=== PATIENT | female | born 1945 | race Caucasian/White ===

== ENCOUNTER 2021-05-13 21:19 | Emergency (ER) | payer MEDICARE, OTHER ==
--- NOTE | 2021-05-13 21:34 | ED Physician Documentation ---
PD HPI CHEST PAIN - Stated complaint Stated Complaint: CP/NAUSEA - History obtained from History obtained from: Patient - History of Present Illness Timing - onset: How many hours ago (1) Timing - onset during: Rest Timing - details: Abrupt onset Pain level max: 4 Pain level now: 0 Quality: Sharp Location: Other (across upper chest) Radiation: Back, Abdominal Improved by: Other (resolved spontaneously (no apparent ameliorating factors)) Worsened by: Other (no exacerbating factors) Associated symptoms: No: Shortness of air, Diaphoresis, Nausea, Vomiting, Feeling faint / dizzy, General Weakness, Palpitations, Cough Similar symptoms before: Has not had sx before Recently seen: Not recently seen - Additional information Additional information: 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 Episode lasted approximately 15 minutes and has spontaneously and completely resolved. It was associated with nausea but no vomiting, as well as eructation. She says she had a similar episode 1 or 2 weeks ago with similar features, also spontaneously resolved Review of Systems Constitutional: reports: Reviewed and negative Cardiac: reports: Chest pain / pressure. denies: Palpitations, Pedal edema Respiratory: reports: Reviewed and negative GI: reports: Abdominal Pain (epigastric (feels like this is pain that originates across upper chest, then radiates to epigastrium)), Nausea. denies: Vomiting : denies: Dysuria, Frequency PD PAST MEDICAL HISTORY - Past Medical History Past Medical History: No - Allergies Allergies/Adverse Reactions: Allergies Allergy/AdvReac Type Severity Reaction Status Date / Time No Known Drug Allergies Allergy Verified 05/13/21 21:34 PD ED PE NORMAL - Vitals Vital signs reviewed: Yes - General General: Alert and oriented X 3, No acute distress, Well developed/nourished - Neck Neck: Supple, no meningeal sign - Cardiac Cardiac: RRR, No murmur, No gallop, No rub - Respiratory Respiratory: No respiratory distress, Clear bilaterally - Abdomen Abdomen: Soft, Non tender, Non distended - Back Back: No CVA TTP - Derm Derm: Normal color, Warm and dry - Extremities Extremities: No edema Results - Vitals Vitals: Oxygen O2 Source Room air - EKG (time done) No standard instances Rate: Rate (enter#) (68) Rhythm: NSR [place]: Normal Intervals: Normal [place] QRS: Normal Ischemia: Normal ST segments Computer interpretation: Disagree with computer (no abberrancy noted) - Labs Labs: Laboratory Tests 05/13/21 05/13/21 05/13/21 22:00 22:00 22:00 WBC 8.6 RBC 4.49 Hgb 11.8 L Hct 36.9 L MCV 82.2 MCH 26.3 L MCHC 32.0 RDW 13.2 Plt Count 209 MPV 10.0 Neut # (Auto) 4.0 Lymph # (Auto) 3.[address] [place] [place] # (Auto) 0.7 Eos # (Auto) 0.3 Baso # (Auto) 0.0 Absolute Nucleated RBC 0.00 Nucleated RBC % 0.0 Sodium 136 Potassium 4.4 Chloride 101 Carbon Dioxide 24 Anion Gap 11.0 BUN 19 Creatinine 0.7 Estimated GFR (MDRD) 81 L Glucose 107 H Calcium 9.2 Total Bilirubin 0.6 AST 20 ALT 14 Alkaline Phosphatase 70 Troponin I High Sens 4.4 Total Protein 7.3 Albumin 4.1 Globulin 3.2 Albumin/Globulin Ratio 1.3 Lipase 33 - Rads (name of study) chest xray Radiology: Prelim report reviewed, See rad report PD MEDICAL DECISION MAKING - ED course Complexity details: reviewed results, re-evaluated patient, considered differential, d/w patient ED course: presents with pain across upper chest radiating to back and abdomen. She has an unremarkable exam, no concerning findings on EKG (some artifact but this does not preclude interpretation), reassuring CXR and blood tests including high sensitivity troponin. Further emergent testing not indicated at this time. Results reviewed with patient, lack of specific diagnosis was discussed, return precautions given. Departure - Departure Disposition: 01 Home, Self Care Clinical Impression: Chest pain Qualifiers: Chest pain type: unspecified Qualified Code(s): R07.9 - Chest pain, unspecified Condition: Good Instructions: ED Chest Pain Atypical Unkn Cause Comments: The tests performed tonight have reassuring/unremarkable results, including the chest xray and EKG as well as the blood tests including a cardiac enzyme test (high-sensitivity troponin). The cause of your symptoms is not apparent at this time. Further tests are at the discretion of your primary care provider, but please return if your symptoms worsen or if you develop new concerning signs/symptoms (such as fever or shortness of breath, for example). Discharge Date/Time: 05/13/21 23:52
[2021-05-13 22:04] LABS: BASOPHILS % (AUTO) 0.3 %; EOSINOPHILS # (AUTO) 0.3 10^3/uL (0.0-0.7); HCT - HEMATOCRIT 36.9 % (37.0-47.0); HGB - HEMOGLOBIN 11.8 g/dL (12.0-16.0); LYMPHOCYTES # (AUTO) 3.6 10^3/uL (1.5-3.5); LYMPHOCYTES % (AUTO) 41.7 %; MEAN CORPUSCULAR HEMOGLOBIN 26.3 pg (27.0-31.0); MEAN CORPUSCULAR VOLUME 82.2 fL (81.0-99.0); MONOCYTES # (AUTO) 0.7 10^3/uL (0.0-1.0); MONOCYTES % (AUTO) 8.1 %; NEUTROPHILS % (AUTO) 46.4 %; PLT - PLATELET COUNT 209 10^3/uL (130-450); RED BLOOD COUNT 4.49 10^6/uL (4.20-5.40); RED CELL DISTRIBUTION WIDTH 13.2 % (12.0-15.0); WHITE BLOOD COUNT 8.6 x10^3/uL (4.8-10.8)
[2021-05-13 22:24] LABS: ALBUMIN 4.1 g/dL (3.2-5.5); ALBUMIN/GLOBULIN RATIO 1.3 (1.0-2.2); BILIRUBIN,TOTAL 0.6 mg/dL (0.2-1.0); CALCIUM 9.2 mg/dL (8.5-10.3); CREATININE 0.7 mg/dL (0.4-1.0); POTASSIUM 4.4 mmol/L (3.5-5.0); TOTAL PROTEIN 7.3 g/dL (6.7-8.2)
--- NOTE | 2021-05-13 22:33 | XRAY Report ---
PROCEDURE: Chest 2 View X-Ray INDICATIONS: chest pain TECHNIQUE: 2 view(s) of the chest. COMPARISON: None. FINDINGS: Surgical changes and devices: None. Lungs and pleura: No pleural effusions or pneumothorax. Lungs are clear. Mediastinum: Mediastinal contours are normal. Heart size is normal. Bones and chest wall: No suspicious bony abnormalities. Soft tissues appear unremarkable. IMPRESSION: No acute cardiopulmonary pathology. Reviewed by: Nam Denis MD on 05/13/2021 10:32 PM [facility] Approved by: Nam Denis MD on 05/13/2021 10:32 PM [facility] Station ID: [id number]
[2021-05-13 23:52] VITALS: BP 161/83
== END 2021-05-13 23:52 | disposition home or self-care (01) ==
LOC: ED 21:19
DX: R07.9 Chest pain, unspecified (principal)
CPT/HCPCS: 36415; 80053; 83690; 84484; 85025; 93005; 99284

== ENCOUNTER 2022-03-06 14:44 | Emergency (ER) | payer OTHER, MEDICARE ==
[2022-03-06] MEDS ORDERED: oxyCODONE 5 MG TABLET PO STA (17:23)
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
--- NOTE | 2022-03-06 18:05 | CT Report ---
PROCEDURE: LUMBAR SPINE WO INDICATIONS: left hip pain TECHNIQUE: Noncontrast 3 mm thick sections acquired from the T12 level to the sacrum. Sagittal and coronal refo rmats were constructed. For radiation dose reduction, the following was used: automated exposure co ntrol, adjustment of mA and/or kV according to patient size. COMPARISON: None. FINDINGS: Image quality: Excellent. Bones: There is normal bony alignment. No acute vertebral body compression fractures. No suspiciou s lytic or blastic bony lesions. Central spinal caliber is of normal overall caliber. No pars defec ts. There is loss of intervertebral disc space height at L5-S1. There our multilevel broad-based disc bulges most pronounced at L4-L5 and L2-L3. There are small to moderate sized vertebral body osteophy lila. There is mild central canal narrowing at L2-L3. Soft tissues: No retroperitoneal masses or hematomas. Visualized aorta is normal in caliber. Low-de nsity renal cysts bilaterally. Low-density right ovarian cyst partially visualized. Diverticulosis. IMPRESSION: No lumbar spine compression fracture. Reviewed by: Mo Stapleton MD on 03/06/2022 6:04 PM PST Approved by: Mo Stapleton MD on 03/06/2022 6:04 PM PST Station ID: [id number]
--- NOTE | 2022-03-06 18:10 | CT Report ---
PROCEDURE: PELVIS WO INDICATIONS: left hip pain TECHNIQUE: Noncontrast 3 mm axial sections acquired through the bony pelvis, with coronal and sagittal reformatt ing. For radiation dose reduction, the following was used: automated exposure control, adjustment of mA and/or kV according to patient size. COMPARISON: Same day lumbar spine CT. FINDINGS: Image quality: Excellent. Bones: No acute fracture or dislocation. No aggressive appearing osseous lesion. There is moderate d egenerative change at the hip joints. Soft tissues: Bilateral low-density renal cysts. Right ovarian low-density cyst measuring 3.4 cm. Pu nctate calcification at the rectal remnant. No mass. Uterus is absent. No free fluid. A few colonic d iverticuli. Tiny fat-containing umbilical hernia. Ventral lower abdominal wall scar. Right buttocks h eterotopic calcification. No enlarged lymph nodes. Mild atherosclerotic plaque in the abdominal aorta . IMPRESSION: No acute osseous abnormality. Moderate bilateral hip DJD. Reviewed by: Mo Stapleton MD on 03/06/2022 6:09 PM PST Approved by: Mo Stapleton MD on 03/06/2022 6:09 PM PST Station ID: [id number]
[2022-03-06 18:59] VITALS: BP 154/78
== END 2022-03-06 19:13 | disposition home or self-care (01) ==
LOC: ED 14:44
DX: M25.552 Pain in left hip (principal)
CPT/HCPCS: 72131; 72192; 99282; 99284; A9270

== ENCOUNTER 2022-03-22 07:36 | Outpatient (CLI) | payer MEDICARE, OTHER ==
--- NOTE | 2022-03-22 17:11 | XRAY Report ---
PROCEDURE: Chest 2 View X-Ray INDICATIONS: COUGH TECHNIQUE: 2 views of the chest were acquired. COMPARISON: Chest x-ray 05/13/2021 FINDINGS: Surgical changes and devices: None. Lungs and pleura: No pleural effusions or pneumothorax. Lungs are clear. Mediastinum: Mediastinal contours are normal. Heart size is normal. Bones and chest wall: No suspicious bony abnormalities. Soft tissues appear unremarkable. IMPRESSION: No acute pulmonary process. Reviewed by: Aundrea Lang MD on 03/22/2022 5:10 PM [facility] Approved by: Aundrea Lang MD on 03/22/2022 5:10 PM [facility] Station ID: [id number]
== END 2022-03-22 23:59 | disposition home or self-care (01) ==
LOC: DI.N 07:36
PROVIDERS: ATTEND Family Medicine
DX: R05.9 Cough, unspecified (principal)

== ENCOUNTER 2022-10-15 19:24 | Emergency (ER) | payer MEDICARE, OTHER ==
[2022-10-15 19:40] VITALS: BP 171/78
--- NOTE | 2022-10-15 19:53 | ED Physician Documentation ---
PD HPI LOWER EXT INJURY - Stated complaint Stated Complaint: R LEG PX - Chief complaint Chief Complaint: Ext Problem - History obtained from History obtained from: Patient - Additional information Additional information: She has had about 6 days of burning pain and numbness in the right lateral thigh. No injury. She had sciatica before but she says this feels different as there is no associated back pain. She has specific worry about a DVT. No personal History of same, but her mom had history of blood clots. PD PAST MEDICAL HISTORY - Present Medications Home Medications: Ambulatory Orders Medication Instructions Recorded Confirmed Rosuvastatin Calcium [Crestor] 10/15/22 Sertraline [Zoloft] 10/15/22 amLODIPine [Norvasc] 10/15/22 metFORMIN [Glucophage] 10/15/22 - Allergies Allergies/Adverse Reactions: Allergies Allergy/AdvReac Type Severity Reaction Status Date / Time gluten Allergy Headache Verified 10/15/22 19:38 - Social History Does the pt smoke?: No Smoking Status: Never smoker PD ED PE NORMAL - Vitals Vital signs reviewed: Yes - General General: Alert and oriented X 3, No acute distress - HEENT HEENT: PERRL, Other (Left-sided Laguerre's palsy, 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 Legs are symmetric in size. Full range of motion is painless. She does have decreased sensation over the right lateral thigh.) - Neuro Neuro: Alert and oriented X 3, Normal speech - Psych Psych: Normal mood, Normal affect Results - Vitals Vitals: Vital Signs - 24 hr 10/15/22 19:33 Temperature 37.0 C Heart Rate 81 Respiratory 16 Rate Blood Pressure 171/78 H O2 Saturation 99 Oxygen O2 Source Room air - Rads (name of study) Right lower extremity Doppler ultrasound was negative per the tech. Relevant Findings:: Prelim report reviewed PD Medical Decision Making - ED course ED course: She draws a oval on the lateral thigh as the area of pain and burning tingling. This is most consistent with meralgia paresthetica. She is concerned about DVT and an ultrasound is certainly reasonable. Departure - Departure Disposition: 01 Home, Self Care Clinical Impression: Meralgia paresthetica of right side Condition: Stable Record reviewed to determine appropriate education?: Yes Comments: As discussed, I believe you have meralgia paresthetica which is a benign self- limited condition. You should definitely follow-up with your primary care physician to discuss. Return for new or worsening symptoms.
--- NOTE | 2022-10-15 21:10 | Ultrasound Report ---
PROCEDURE: Duplex Ext Veins Right INDICATIONS: leg pn TECHNIQUE: Real-time imaging, as well as color and pulse Doppler interrogation, were performed of the lower extr emity deep veins from the inguinal ligament to the popliteal fossa. COMPARISON: None. FINDINGS: The deep veins are normally compressible, and free of intraluminal thrombus. Color and pu lse Doppler demonstrate normal phasic intraluminal flow. There is normal augmentation response to di stal compression maneuver. IMPRESSION: No deep venous thrombosis. Reviewed by: Aundrea Lang MD on 10/15/2022 9:09 PM PDT Approved by: Aundrea Lang MD on 10/15/2022 9:09 PM PDT Station ID: [id number]
== END 2022-10-15 20:39 | disposition home or self-care (01) ==
LOC: ED 19:24
DX: R20.2 Paresthesia of skin (principal)
CPT/HCPCS: 99282; 99284

== ENCOUNTER 2023-03-13 15:52 | Emergency (ER) | payer MEDICARE, OTHER ==
--- NOTE | 2023-03-13 16:22 | ED Physician Documentation ---
PD HPI CHEST PAIN - Stated complaint Stated Complaint: CHEST PX - Chief complaint Chief Complaint: Cardiac - History obtained from History obtained from: Patient - History of Present Illness Timing - onset: How many hours ago (10) Timing - onset during: Rest Timing - duration: Hours Timing - details: Gradual onset, Still present, Waxing and waning Quality: Aching, Sharp, Pain Location: Substernal, Left chest Radiation: No: Neck, Back Improved by: Rest Worsened by: Inspiration, Movement. No: Eating, Palpation Associated symptoms: Shortness of air. No: General Weakness, Palpitations Similar symptoms before: Has not had sx before Recently seen: Not recently seen Review of Systems Constitutional: denies: Fever Nose: denies: Rhinorrhea / runny nose, Congestion Cardiac: reports: Chest pain / pressure. denies: Palpitations, Pedal edema, Calf pain Respiratory: reports: Dyspnea. 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 - Present Medications Home Medications: Ambulatory Orders Medication Instructions Recorded Confirmed Rosuvastatin Calcium [Crestor] 10 mg PO DAILY 10/15/22 10/15/22 Sertraline [Zoloft] 25 mg PO DAILY 10/15/22 10/15/22 amLODIPine [Norvasc] 5 mg PO DAILY 10/15/22 10/15/22 metFORMIN [Glucophage] 500 mg PO DAILY 10/15/22 10/15/22 - Allergies Allergies/Adverse Reactions: Allergies Allergy/AdvReac Type Severity Reaction Status Date / Time gluten Allergy Headache Verified 03/13/23 16:04 - Social History Does the pt smoke?: No Smoking Status: Never smoker Does the pt drink ETOH?: No Does the pt have substance abuse?: No - Immunizations Immunizations are current?: Yes PD ED PE NORMAL - Vitals Vital signs reviewed: Yes - General General: Alert and oriented X 3, Well developed/nourished - HEENT HEENT: Pharynx benign - Neck Neck: Supple, no meningeal sign, No adenopathy - Cardiac Cardiac: RRR, No murmur - Respiratory Respiratory: No respiratory distress, Clear bilaterally, Other (no chestwall tenderness) - Abdomen Abdomen: Soft, Non tender - Derm Derm: Normal color, Warm and dry, No rash - Extremities Extremities: No edema, No calf tenderness / cord - Neuro Neuro: Alert and oriented X 3, No motor deficit, Normal speech Results - Vitals Vitals: Oxygen O2 Source Room air - EKG (time done) 15:57 EKG releavant findings:: EKG personally interpreted by author of this note. Relevant findings are: Rate: Rate (enter#) (87) Rhythm: NSR [place]: Normal Intervals: Normal [place] QRS: Normal Ischemia: Normal ST segments. No: ST elevation c/w ischemia, ST depression - Labs Labs: Laboratory Tests 03/13/23 03/13/23 03/13/23 16:25 16:43 16:48 WBC 9.1 RBC 4.42 Hgb 11.8 L Hct 38.2 MCV 86.4 MCH 26.7 L MCHC 30.9 L RDW 13.3 Plt Count 254 MPV 11.1 H Neut # (Auto) 6.0 Lymph # (Auto) 2.1 [place] # (Auto) 0.7 Eos # (Auto) 0.3 Baso # (Auto) 0.0 Absolute Nucleated RBC 0.00 Nucleated RBC % 0.0 Sodium 137 Potassium 4.0 Chloride 103 Carbon Dioxide 27 Anion Gap 7.0 BUN 18 Creatinine 0.6 Estimated GFR (MDRD) 97 Glucose 118 H Calcium 9.8 Magnesium 1.8 Total Bilirubin 0.3 AST 15 ALT 10 Alkaline Phosphatase 56 Troponin I High Sens 3.0 B-Natriuretic Peptide 36 Total Protein 6.6 Albumin 4.3 Globulin 2.3 Albumin/Globulin Ratio 1.9 Lipase 30 - Rads (name of study) chest xray Relevant Findings:: Prelim report reviewed (no acute process), EMP independent interpretation of test PD Medical Decision Making - ED course Complexity details: reviewed results (ECG, CXR are normal. Trop and BNP negative. No signs of heart strain, CHF, DE. Not anemic. Lytes are okay. ), considered differential (Onset of synptoms several hours after applying estradiol topical gel. No signs of CAD/DE/CHF nor lung related cause of CP. Presume side effect of it. ), d/w patient Departure - Departure Disposition: 01 Home, Self Care Clinical Impression: Chest pain, Adverse effect of estradiol Condition: Stable Record reviewed to determine appropriate education?: Yes Instructions: ED Chest Pain NonCardiac Comments: Your EKG does not show any acute injury pattern. Your blood test called troponin is quite normal also no signs of acute heart muscle injury. Your blood count and electrolytes and blood sugar are also normal. No signs of heart failure based on your chest x-ray and no signs of fluid around the lungs or collapsed lung. Your EKG here did not show any significant abnormalities. There was some slight T wave flattening which is fairly common. I do not have comparison EKGs on our system. I printed off a copy of yours that you can bring or send to other providers who may have prior EKGs. The [place] component is the normal troponin and BNP not show any signs of heart injury or heart failure. Presume the symptoms you are having are side effect of the estradiol given the timing of it. It can cause changes in the blood flow in such through the heart and lungs causing some symptoms without injury per se. This should dissipate over the next day or 2 and obviously remain off the estradiol. Follow-up with your primary care discussing any other treatment options. Forms: PCP List Discharge Date/Time: 03/13/23 17:41
[2023-03-13 16:29] LABS: BASOPHILS % (AUTO) 0.4 %; EOSINOPHILS # (AUTO) 0.3 10^3/uL (0.0-0.7); HCT - HEMATOCRIT 38.2 % (37.0-47.0); HGB - HEMOGLOBIN 11.8 g/dL (12.0-16.0); LYMPHOCYTES # (AUTO) 2.1 10^3/uL (1.5-3.5); LYMPHOCYTES % (AUTO) 23.1 %; MEAN CORPUSCULAR HEMOGLOBIN 26.7 pg (27.0-31.0); MEAN CORPUSCULAR HGB CONC 30.9 g/dL (32.0-36.0); MEAN CORPUSCULAR VOLUME 86.4 fL (81.0-99.0); MEAN PLATELET VOLUME 11.1 fL (7.9-10.8); MONOCYTES # (AUTO) 0.7 10^3/uL (0.0-1.0); MONOCYTES % (AUTO) 7.2 %; NEUTROPHILS % (AUTO) 66.1 %; PLT - PLATELET COUNT 254 10^3/uL (130-450); RED BLOOD COUNT 4.42 10^6/uL (4.20-5.40); RED CELL DISTRIBUTION WIDTH 13.3 % (12.0-15.0); WHITE BLOOD COUNT 9.1 x10^3/uL (4.8-10.8)
--- NOTE | 2023-03-13 16:36 | XRAY Report ---
PROCEDURE: Chest 1 View X-Ray INDICATIONS: Chest pain TECHNIQUE: One view of the chest was acquired. COMPARISON: 03/22/2022 FINDINGS: Surgical changes and devices: None. Lungs and pleura: No pleural effusions or pneumothorax. Lungs are clear. Mediastinum: Size is at the upper limit of normal. Bones and chest wall: Degenerative changes. IMPRESSION: No acute radiographic abnormality. Reviewed by: Edenilson Ghosh MD on 03/13/2023 4:35 PM PST Approved by: Edenilson Ghosh MD on 03/13/2023 4:35 PM PST Station ID: [id number]
[2023-03-13 17:10] LABS: ALBUMIN 4.3 g/dL (3.2-5.5); ALBUMIN/GLOBULIN RATIO 1.9 (1.0-2.2); BILIRUBIN,TOTAL 0.3 mg/dL (0.2-1.0); CALCIUM 9.8 mg/dL (8.5-10.3); CREATININE 0.6 mg/dL (0.6-1.3); MAGNESIUM 1.8 mg/dL (1.7-2.3); TOTAL PROTEIN 6.6 g/dL (6.4-8.9)
[2023-03-13 17:41] VITALS: BP 154/78; O2SAT 99
== END 2023-03-13 17:41 | disposition home or self-care (01) ==
LOC: ED 15:52
DX: R07.2 Precordial pain (principal); T38.5X5A Adverse effect of other estrogens and progestogens, initial encounter
CPT/HCPCS: 36415; 80053; 83690; 83735; 83880; 84484; 85025; 93005; 99283; 99284

== ENCOUNTER 2023-11-11 22:19 | Emergency (ER) | payer MEDICARE, OTHER ==
[2023-11-11 22:47] LABS: BASOPHILS % (AUTO) 0.4 %; EOSINOPHILS # (AUTO) 0.2 10^3/uL (0.0-0.7); EOSINOPHILS % (AUTO) 1.7 %; HCT - HEMATOCRIT 35.6 % (37.0-47.0); HGB - HEMOGLOBIN 11.2 g/dL (12.0-16.0); LYMPHOCYTES % (AUTO) 27.6 %; MEAN CORPUSCULAR HEMOGLOBIN 26.8 pg (27.0-31.0); MEAN CORPUSCULAR HGB CONC 31.5 g/dL (32.0-36.0); MEAN CORPUSCULAR VOLUME 85.2 fL (81.0-99.0); MEAN PLATELET VOLUME 9.1 fL (7.9-10.8); MONOCYTES % (AUTO) 9.2 %; NEUTROPHILS # (AUTO) 6.5 10^3/uL (1.5-6.6); NEUTROPHILS % (AUTO) 60.7 %; PLT - PLATELET COUNT 299 10^3/uL (130-450); RED BLOOD COUNT 4.18 10^6/uL (4.20-5.40); RED CELL DISTRIBUTION WIDTH 13.5 % (12.0-15.0); WHITE BLOOD COUNT 10.7 x10^3/uL (4.8-10.8)
[2023-11-11 23:07] LABS: ALBUMIN 4.5 g/dL (3.2-5.5); ALBUMIN/GLOBULIN RATIO 1.5 (1.0-2.2); BILIRUBIN,TOTAL 0.4 mg/dL (0.2-1.0); CALCIUM 9.8 mg/dL (8.5-10.3); CREATININE 1.3 mg/dL (0.6-1.3); POTASSIUM 4.2 mmol/L (3.5-4.5); TOTAL PROTEIN 7.6 g/dL (6.4-8.9)
[2023-11-11 23:08] LABS: TROPONIN I HIGH SENSITIVITY 3.5 ng/L (2.3-14.8)
--- NOTE | 2023-11-12 00:36 | XRAY Report ---
PROCEDURE: Chest 1V INDICATIONS: Chest pain TECHNIQUE: One view of the chest was acquired. COMPARISON: 03/13/2023 FINDINGS: Surgical changes and devices: None. Lungs and pleura: No pleural effusions or pneumothorax. Lungs are clear. Mediastinum: Mediastinal contours appear normal. Heart size is normal. Bones and chest wall: No suspicious bony lesions. Overlying soft tissues appear unremarkable. IMPRESSION: No acute cardiopulmonary process. No focal consolidation. Reviewed by: Michael Chambers MD on 11/12/2023 12:34 AM PDT Approved by: Michael Chambers MD on 11/12/2023 12:34 AM PDT Station ID: [id number]
[2023-11-12] MEDS: SODIUM CHLORIDE 0.9% 1,000 ML IV STA (01:40)
--- NOTE | 2023-11-12 02:18 | ED Physician Documentation ---
History of Present Illness - Stated complaint Stated Complaint: DIZZY/CHEST PRESSURE - Chief complaint Chief Complaint: Neuro - History obtained from History obtained from: Patient, Family - Additonal information Additional information: The pt comes to the ED with CC of "feeling drugged". She has been feeling this way for the past few weeks, and was already [place] in an [place] of [place] for the same, at which time she had a head CT which was negative. She is concerned that the feeling may be coming from the blood pressure med she started a month ago, Benyazr. She states that just prior to starting that, she had been taking care of her [id number], who is ill with multiple myeloma. This went on for 6 weeks, and the pt states it was very taxing. She shortly thereafter went on a trip to [place] to visit family, and really began to notice the fatigue and "drugged" feeling. It was there she was seen at the ED, because her PCP didn't want her to fly home without getting a head CT. She got home a couple of days ago, and spent today doing yard work all day long. She states she didn't eat or drink anything until this evening, at which time she drank about 16 oz of water. She has not yet seen her PCP about the sx. No focal neuro deficits. No CP, SOB, N/V, or lightheadedness. She states she occasionally feels a slight pressure in her upper chest. No other complaints at this time. 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, Oophrectomy - Present Medications Home Medications: Ambulatory Orders Medication Instructions Recorded Confirmed Cholecalciferol [Vitamin D3] 25 mcg PO DAILY 11/11/23 11/11/23 Cyanocobalamin (Vitamin B-12) 5,000 mcg PO DAILY 11/11/23 11/11/23 [Vitamin B12] DULoxetine [Cymbalta] 60 mg PO DAILY 11/11/23 11/11/23 Fructooligosaccharides/Inulin 95 mg PO DAILY 11/11/23 11/11/23 [Prebiotic Inulin-Fos Powder] Gabapentin [Neurontin] 900 mg PO TID PRN 11/11/23 11/11/23 LORazepam [Ativan] 0.5 mg PO TID PRN 11/11/23 11/11/23 Lacto 51/B.animal,Bifid/Inulin 1 each PO DAILY 11/11/23 11/11/23 [Fortify Probiotic 30B Cfu Cap] Magnesium Oxide [Magnesium] 1 tab PO BID 11/11/23 11/11/23 Nitroglycerin [Nitrostat] 0.4 mg SL [id number] 11/11/23 11/11/23 Olmesartan Medoxomil [Benicar] 20 mg PO DAILY 11/11/23 11/11/23 [place]-3 Acid Ethyl Esters 2 gm PO BID 11/11/23 11/11/23 Rosuvastatin Calcium 20 mg PO HS 11/11/23 11/11/23 traZODone [Desyrel] See Rx Instructions .ROUTE .COMPLEX 11/11/23 11/12/23 - Allergies Allergies/Adverse Reactions: Allergies Allergy/AdvReac Type Severity Reaction Status Date / Time gluten Allergy Headache Verified 11/11/23 22:38 - Social History Does the pt smoke?: No Smoking Status: Never smoker Does the pt drink ETOH?: No Does the pt have substance abuse?: No - Immunizations Immunizations are current?: Yes - POLST Patient has POLST: No PD ED PE NORMAL - Vitals Vital signs reviewed: Yes - General General: Alert and oriented X 3, No acute distress, Well developed/nourished - HEENT HEENT: Atraumatic, PERRL, EOMI, Moist mucous membranes - Neck Neck: Supple, no meningeal sign - Cardiac Cardiac: RRR, No murmur - Respiratory Respiratory: No respiratory distress, Clear bilaterally - Abdomen Abdomen: Soft, Non tender, Non distended - Derm Derm: Normal color, Warm and dry, No rash - Extremities Extremities: No deformity - Neuro Neuro: Alert and oriented X 3, ceiling cleaner 2-12 intact, No motor deficit, No sensory deficit, Normal speech - Psych Psych: Normal mood, Normal affect Results - Vitals Vitals: Oxygen O2 Source Room air - EKG (time done) 2234 EKG releavant findings:: EKG personally interpreted by author of this note. Relevant findings are: Rate: Rate (enter#) (75) Rhythm: NSR [place]: Normal Intervals: Normal [place] QRS: Normal Ischemia: Normal ST segments Compare to prior EKG: Old EKG unavailable Computer interpretation: Agree with computer - Labs Labs: Laboratory Tests 11/11/23 11/11/23 11/12/23 22:42 22:42 01:08 WBC 10.7 RBC 4.18 L Hgb 11.2 L Hct 35.6 L MCV 85.2 MCH 26.8 L MCHC 31.5 L RDW 13.5 Plt Count 299 MPV 9.1 Neut # (Auto) 6.5 Lymph # (Auto) 3.0 [place] # (Auto) 1.0 Eos # (Auto) 0.2 Baso # (Auto) 0.0 Absolute Nucleated RBC 0.00 Nucleated RBC % 0.0 Sodium 134 L Potassium 4.2 Chloride 99 L Carbon Dioxide 28 Anion Gap 7.0 BUN 29 H Creatinine 1.3 Estimated GFR (MDRD) 40 L Glucose 84 Calcium 9.8 Total Bilirubin 0.4 AST 16 ALT 11 Alkaline Phosphatase 62 Troponin I High Sens 3.5 3.0 Total Protein 7.6 Albumin 4.5 Globulin 3.1 Albumin/Globulin Ratio 1.5 Lipase 27 PD Medical Decision Making - ED course Complexity details: reviewed results, re-evaluated patient, considered differential, d/w patient, d/w family ED course: The pt had ongoing sx of feeling "drugged", with some occasional vague chest pressure, but no other sx. Given the nonspecific sx, the pt was worked up with a variety of labs, as well as EKG. BUN was elevated relative to the creatinine at 29 and 1.3. Hgb was mildly decreased at 11.2. The pt had no focal deficits, and had already had a negative CT for the same sx. The pt was given a liter of NS to treat her volume contraction. Both troponins were normal, with the second being lower than the first. I d/w the pt and daughter that the pt has been under a lot of pressure and stress lately, as well as the busyness of traveling and trying to keep up her yard. She needs to rest for a few days to let herself recover and see if this helps the sx. I have also advised the pt to make the next available appointment with her doctor to discuss her concerns about the Benicar and see if she can trial going off of it. The daughter states that the pt is supposed to take her sister in law to some doctor's appointments tomorrow, and wonders if she is fit to do this. I have advised the daughter that the pt should be relieved of these duties until she is feeling better. We have discussed the usual indications for return. Departure - Departure Disposition: 01 Home, Self Care Clinical Impression: Dehydration Altered mental status Qualifiers: Altered mental status type: unspecified Qualified Code(s): R41.82 - Altered mental status, unspecified Condition: Stable Instructions: ED Confusion, ED Dehydration Comments: It is not clear what has been causing your feeling of being "off" for the last couple of weeks. It is possible that it is related to your new blood pressure medication, but it is also likely related to the combination of the 6 weeks of caring for your [id number] plus the ongoing worry about her condition, followed by the trip to [place], followed by returning home to lots of work around your property. It also likely is related to not drinking enough water, at least for today's episode, as your labs did show evidence of dehydration. You will need to follow-up with your primary doctor to continue to try to get to the bottom of how you are feeling. If you suspect the medication, you may try taking just half of the dose of the Benicar and see if this helps. You should make the next available appointment with your primary to follow-up in discussed your blood pressure regimen and see if there is something better for you to be on that will not cause you some any side effects. Otherwise, please sure you are getting 8 to 10 cups of water each day, especially if you are outside doing yard work. Please get some rest tomorrow so that you can recover a bit. Forms: PCP List Discharge Date/Time: 11/12/23 02:55
[2023-11-12 02:40] VITALS: BP 99/57; O2SAT 95
== END 2023-11-12 02:55 | disposition home or self-care (01) ==
LOC: ED 22:19
DX: E86.0 Dehydration (principal); R41.82 Altered mental status, unspecified; I10 Essential (primary) hypertension; C90.00 Multiple myeloma not having achieved remission; E11.9 Type 2 diabetes mellitus without complications
CPT/HCPCS: 36415; 80053; 83690; 84484; 85025; 93005; 99284

== ENCOUNTER 2023-11-12 08:00 | Outpatient (CLI) | payer MEDICARE, OTHER | END 2023-11-12 23:59 | disposition home or self-care (01) | LOC: LAB.N 08:00 | PROVIDERS: ATTEND Nurse Practitioner | DX: N39.0 Urinary tract infection, site not specified (principal) | CPT/HCPCS: 87086; 87181 ==

== ENCOUNTER 2024-01-15 11:46 | Emergency (ER) | payer MEDICARE, OTHER ==
--- NOTE | 2024-01-15 12:23 | ED Physician Documentation ---
History of Present Illness - Stated complaint Stated Complaint: HIGH BP, CP, LT THIGH SORE - Chief complaint Chief Complaint: Cardiac - History obtained from History obtained from: Patient - History of Present Illness Timing: Yesterday Pain level max: 7 Pain level now: 5 - Additonal information Additional information: 78-year-old female presents to the emergency department with multiple complaints. She states that yesterday she had a headache, took Tylenol and Motrin but did not have any relief. She does not recall where the headache was exactly. No trauma. No falls other than a fall about 4 months ago. Not on blood thinners other than a baby aspirin. She states that she had another headache this morning decided to check her blood pressure and found it to be higher than usual. 170/110. She states she also had chest pressure last night when she was walking up the stairs on her way to bed, took nitroglycerin and went to sleep. She states that this morning she still has 4 out of 10 chest pressure. Seems to be worse with exertion and deep breathing. It is staying present even at rest today. She states that she sees a dredge hand at [facility] whose last name she believes starts with shivani Jimenez. She states that she had an abnormal cardiac stress test 2 years ago but this was not followed up with any interventions. She has never had an angiogram or a stent. Patient also states that her left thigh was sore this morning but she states that has since resolved. No swelling. No redness. 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 : None Psych: Depression Musculoskeletal: None Derm: None - Past Surgical History Past Surgical History: Yes /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: Hysterectomy, Oophrectomy HEENT: Tonsil/Adenoidectomy - Present Medications Home Medications: Ambulatory Orders Medication Instructions Recorded Confirmed Cholecalciferol [Vitamin D3] 25 mcg PO DAILY 11/11/23 01/15/24 Cyanocobalamin (Vitamin B-12) 5,000 mcg PO DAILY 11/11/23 01/15/24 [Vitamin B12] DULoxetine [Cymbalta] 60 mg PO DAILY 11/11/23 01/15/24 Fructooligosaccharides/Inulin 95 mg PO DAILY 11/11/23 01/15/24 [Prebiotic Inulin-Fos Powder] LORazepam [Ativan] 0.5 mg PO TID PRN 11/11/23 01/15/24 Lacto 51/B.animal,Bifid/Inulin 1 each PO DAILY 11/11/23 01/15/24 [Fortify Probiotic 30B Cfu Cap] Magnesium Oxide [Magnesium] 1 tab PO DAILY 11/11/23 01/15/24 Nitroglycerin [Nitrostat] 0.4 mg SL [id number] PRN 11/11/23 01/15/24 [place]-3 Acid Ethyl Esters 2 gm PO DAILY 11/11/23 01/15/24 Rosuvastatin Calcium 20 mg PO HS 11/11/23 01/15/24 traZODone [Desyrel] 25 mg ORAL HS PRN 11/11/23 01/15/24 Losartan Potassium 25 mg PO DAILY 01/15/24 01/15/24 metFORMIN [Glucophage] 500 mg PO BIDWM 01/15/24 01/15/24 - Allergies Allergies/Adverse Reactions: Allergies Allergy/AdvReac Type Severity Reaction Status Date / Time gluten Allergy Headache Verified 01/15/24 11:50 - Social History Does the pt smoke?: No Smoking Status: Former smoker Does the pt drink ETOH?: No Does the pt have substance abuse?: No - Immunizations Immunizations are current?: No Immunizations: Other immun not current - POLST Patient has POLST: No PD ED PE NORMAL - Vitals Vital signs reviewed: Yes - General General: Alert and oriented X 3, No acute distress - HEENT HEENT: PERRL, Moist mucous membranes - Neck Neck: Supple, no meningeal sign - Cardiac Cardiac: RRR, Strong equal pulses - Respiratory Respiratory: No respiratory distress, Clear bilaterally - Abdomen Abdomen: Soft, Non tender, Non distended - Back Back: No CVA TTP, No spinal TTP - Derm Derm: Warm and dry - Extremities Extremities: No edema, No calf tenderness / cord - Neuro Neuro: Alert and oriented X 3 - Psych Psych: Normal mood, Normal affect Results - Vitals Vitals: Vital Signs - 24 hr 01/15/24 01/15/24 01/15/24 11:50 12:10 12:34 Temperature 36.5 C Heart Rate 69 67 65 Respiratory 18 18 18 Rate Blood Pressure 177/80 H 173/79 H 160/81 H O2 Saturation 98 98 96 01/15/24 01/15/24 13:06 14:24 Temperature 36.8 C Heart Rate 66 69 Respiratory 18 19 Rate Blood Pressure 152/84 H 155/76 H O2 Saturation 95 95 Oxygen O2 Source Room air - EKG (time done) 1202 EKG releavant findings:: EKG personally interpreted by author of this note. Relevant findings are: Rate: Rate (enter#) (64) Rhythm: NSR [place]: Normal Intervals: Prolonged [place] QRS: Normal Ischemia: Normal ST segments - Labs Labs: Laboratory Tests 01/15/24 01/15/24 01/15/24 12:05 12:05 12:22 WBC 9.4 RBC 4.42 Hgb 11.7 L Hct 38.7 MCV 87.6 MCH 26.5 L MCHC 30.2 L RDW 13.7 Plt Count 260 MPV 9.8 Neut # (Auto) 6.0 Lymph # (Auto) 2.5 [place] # (Auto) 0.6 Eos # (Auto) 0.2 Baso # (Auto) 0.0 Absolute Nucleated RBC 0.00 Nucleated RBC % 0.0 D-Dimer < 200.0 L Sodium 136 Potassium 3.9 Chloride 102 Carbon Dioxide 30 Anion Gap 4.0 L BUN 16 Creatinine 0.7 Estimated GFR (MDRD) 81 L Glucose 104 Calcium 9.7 Total Bilirubin 0.5 AST 21 ALT 13 Alkaline Phosphatase 52 Troponin I High Sens 3.8 Total Protein 7.2 Albumin 4.6 Globulin 2.6 Albumin/Globulin Ratio 1.8 Lipase 27 - Rads (name of study) cxr Relevant Findings:: Final report received, See rad report head CT Relevant Findings:: Final report received, See rad report PD Medical Decision Making - ED course Complexity details: reviewed results, re-evaluated patient, considered diff erential, d/w patient ED course: 78-year-old female with chest pain, headache and concerned about her blood pressure. Her blood pressure decreased on its own in the emergency department. No evidence of endorgan damage. Head CT does not show any acute abnormalities. No evidence of subarachnoid hemorrhage, tumor, mass. Chest x-ray, EKG and high-sensitivity troponin are negative. Her symptoms mostly resolved in the emergency department. Discussed the case with her dredge hand, Dr. De Leon, He reviewed her prior stress test, he states that she did develop some chest pain during the stress test but did not have any significant ischemic changes and her imaging was negative for any ischemia as well. He will schedule a new stress test with her. Given that the symptoms have been greater than 12 hours, does not need a second troponin. We will have her follow-up with her doctor tomorrow as scheduled. Patient will return if she worsens. No focal neurological deficits, does have residual right-sided facial droop from Laguerre's palsy. Patient counseled regarding signs and symptoms for which I believe and urgent re-evaluation would be necessary. Patient with good understanding of and agreement to plan and is comfortable going home at this time This document was made in part using voice recognition software. While efforts are made to proofread this document, sound alike and grammatical errors may occur. Departure - Departure Disposition: 01 Home, Self Care Clinical Impression: Headache Qualifiers: Headache type: unspecified Headache chronicity pattern: acute headache Intractability: not intractable Qualified Code(s): R51.9 - Headache, unspecified Chest pain Qualifiers: Chest pain type: unspecified Qualified Code(s): R07.9 - Chest pain, unspecified Hypertension Qualifiers: Hypertension type: unspecified Qualified Code(s): I10 - Essential (primary) hypertension Condition: Good Instructions: ED Chest Pain Atypical Unkn Cause, ED Cephalgia Unspecified Follow-Up: ITALIA DAVIS, [Primary Care Provider] - Melecio De Leon MD [Physician No Access] - Comments: Please continue your current medications at home. Please follow-up with your doctor for further care. I also talked to Dr. De Leon today, he will schedule you for another cardiac stress test. Please return here or follow-up at [facility] if your chest pain worsens. Please keep track of your blood pressure at home as well, this can help your doctor adjust your medications as needed. Your EKG, troponin, chest x-ray, head CT are all negative today. Forms: PCP List Discharge Date/Time: 01/15/24 14:35
[2024-01-15 12:32] LABS: BASOPHILS % (AUTO) 0.4 %; EOSINOPHILS # (AUTO) 0.2 10^3/uL (0.0-0.7); EOSINOPHILS % (AUTO) 2.6 %; HCT - HEMATOCRIT 38.7 % (37.0-47.0); HGB - HEMOGLOBIN 11.7 g/dL (12.0-16.0); LYMPHOCYTES # (AUTO) 2.5 10^3/uL (1.5-3.5); LYMPHOCYTES % (AUTO) 26.8 %; MEAN CORPUSCULAR HEMOGLOBIN 26.5 pg (27.0-31.0); MEAN CORPUSCULAR HGB CONC 30.2 g/dL (32.0-36.0); MEAN CORPUSCULAR VOLUME 87.6 fL (81.0-99.0); MEAN PLATELET VOLUME 9.8 fL (7.9-10.8); MONOCYTES # (AUTO) 0.6 10^3/uL (0.0-1.0); MONOCYTES % (AUTO) 6.1 %; NEUTROPHILS % (AUTO) 63.9 %; PLT - PLATELET COUNT 260 10^3/uL (130-450); RED BLOOD COUNT 4.42 10^6/uL (4.20-5.40); RED CELL DISTRIBUTION WIDTH 13.7 % (12.0-15.0); WHITE BLOOD COUNT 9.4 x10^3/uL (4.8-10.8)
[2024-01-15 12:36] LABS: ALBUMIN 4.6 g/dL (3.2-5.5); ALBUMIN/GLOBULIN RATIO 1.8 (1.0-2.2); BILIRUBIN,TOTAL 0.5 mg/dL (0.2-1.0); CALCIUM 9.7 mg/dL (8.5-10.3); CREATININE 0.7 mg/dL (0.6-1.3); POTASSIUM 3.9 mmol/L (3.5-4.5); TOTAL PROTEIN 7.2 g/dL (6.4-8.9)
[2024-01-15 12:41] LABS: TROPONIN I HIGH SENSITIVITY 3.8 ng/L (2.3-14.8)
--- NOTE | 2024-01-15 13:13 | XRAY Report ---
PROCEDURE: Chest 1V INDICATIONS: Chest Pain TECHNIQUE: One view of the chest was acquired. COMPARISON: 11/11/2023 and 03/13/2023. FINDINGS: Surgical changes and devices: None. Lungs and pleura: No pleural effusions or pneumothorax. Lungs are clear. Mediastinum: Mediastinal contours appear normal. Heart size is normal. Bones and chest wall: No suspicious bony lesions. Overlying soft tissues appear unremarkable. IMPRESSION: No acute cardiopulmonary process. Reviewed by: Nam Denis MD on 01/15/2024 1:12 PM PDT Approved by: Nam Denis MD on 01/15/2024 1:12 PM PDT Station ID: [id number]
[2024-01-15 13:18] VITALS: O2SAT 95
--- NOTE | 2024-01-15 14:00 | CT Report ---
PROCEDURE: Head WO INDICATIONS: headache TECHNIQUE: Noncontrast 4.5 mm thick angled axial sections acquired from the foramen magnum to the vertex. For r adiation dose reduction, the following was used: automated exposure control, adjustment of mA and/or kV according to patient size. COMPARISON: None. FINDINGS: Image quality: Excellent. CSF spaces: Basal cisterns are patent. No extra-axial fluid collections. Ventricles are normal in size and shape. Brain: No midline shift. No intracranial masses or hemorrhage. Age-related global volume loss and c hronic microvascular ischemic changes. Intracranial atherosclerotic vascular calcifications. Aceves-wh ite matter interface is normal. Skull and face: Calvarium and visualized facial bones are intact, without suspicious lesions. Bilate ral lens replacements. The orbits are otherwise normal in appearance. Sinuses: Visualized sinuses and mastoids are clear. IMPRESSION: No acute intracranial pathology. Reviewed by: Aram Coronado MD on 01/15/2024 1:59 PM PDT Approved by: Aram Coronado MD on 01/15/2024 1:59 PM PDT Station ID: [id number]
[2024-01-15 14:26] VITALS: BP 155/76
== END 2024-01-15 14:35 | disposition home or self-care (01) ==
LOC: ED 11:46
DX: R51.9 Headache, unspecified (principal); R07.9 Chest pain, unspecified; I10 Essential (primary) hypertension; E78.00 Pure hypercholesterolemia, unspecified; E11.9 Type 2 diabetes mellitus without complications; Z79.84 Long term (current) use of oral hypoglycemic drugs; Z79.899 Other long term (current) drug therapy
CPT/HCPCS: 36415; 80053; 83690; 84484; 85025; 85379; 93005; 99284